=== PATIENT | male | born 1985 | race Caucasian/White ===

== ENCOUNTER → 2021-03-12 13:43 | Outpatient (CLI) | payer OTHER, SELFPAY | PROVIDERS: Visit Provider Nurse Practitioner | DX: U07.1 COVID-19 (principal) | CPT/HCPCS: C9803; U0003; U0005 ==

== ENCOUNTER 2023-02-08 08:00 | Emergency (ER) | payer BC, SELFPAY ==
[2023-02-08 08:37] VITALS: BP 119/68; PULSE 77; RESP 20; TEMP 36.9; O2SAT 97; BMI 25.0
--- NOTE | 2023-02-08 08:42 | HMH.EDGENADL ---
Discharge Plan Disposition Patient Disposition: Home, Self-Care Prescriptions Prescriptions: New bbiufhrkzdtyazl-louaadsir-ZA [Bromfed DM] 2-30-10 mg/5 mL syrup 5 ml PO Q6H PRN (Reason: cold symptoms) Qty: 118 0RF Referrals Follow up/Referrals: Provider,Referral, MD [Primary Care Provider] - See instructions Activity Restrictions/Add. Instructions Additional Instructions/Restrictions: At this time it was felt you are safe to be discharged home. If new or worsening symptoms please do not hesitate to return the emergency department. If symptoms persist please follow-up with your family doctor as you are able. Please take your medications as prescribed. Clinical Impressions Clinical Impression: Acute viral syndrome Discharge ED Provider: Diomedes Dong General Adult HPI General Chief complaint: Upper Respiratory Infection Stated complaint: congestion,headache,body aches Time Seen by Provider: 02/08/23 08:23 Mode of Arrival: Ambulatory Source of Information: Patient Limitations: No Limitations Description of Symptoms (Recalled from ER Triage Doc. by RN): pt to ed c/o body aches, intermittent cough and headache x1 week History of Present Illness HPI narrative: Patient is a 37-year-old male who presents emergency department for evaluation of upper respiratory symptoms patient has had an intermittent cough, body aches for the last week. Symptoms are improved with Tylenol and ibuprofen however resurge after. Patient has multiple sick contacts at home with similar symptoms. Adequate p.o. intake. No chest pain or shortness of breath currently. Patient feels as if he is getting better. No other acute complaints at this time. Related Data Previous Rx's Medication Instructions Recorded wzlvvloeeneropi-iwgciamiigmoewa-EZ 5 ml PO Q6H PRN cold symptoms #118 02/08/23 2 mg-30 mg-10 mg/5 mL oral syrup mL (Bromfed DM) Allergies Allergy/AdvReac Type Severity Reaction Status Date / Time No Known Allergies Allergy Verified 02/08/23 08:44 [facility] Disclaimer: The information contained in this section may have been updated after the patient was seen, as this information can be updated by other users. Social History Smoking Status: Never smoker alcohol intake: never current occupational status: other Travel in the last 8 weeks: None ROS Obtained: Yes Systems reviewed as appropriate & no additional complaints except as documented Physical Exam General General appearance: alert and in no apparent distress Head Head exam: atraumatic and normocephalic Eye Eye exam: Present PERRL and EOMI ENT ENT exam: Present normal oropharynx and mucous membranes moist Neck Neck exam: Present normal inspection Chest Chest inspection: Present normal inspection and symmetric chest wall rise Respiratory Respiratory exam: Present normal lung sounds bilaterally; Absent respiratory distress, wheezes or accessory muscle use Cardiovascular Cardiovascular exam: Present regular rate and normal rhythm Abdominal Exam Abdominal exam: Present soft; Absent tenderness Extremities Exam Extremities exam: Present normal inspection Neurological Exam Neurological exam: Present alert Psychiatric Psychiatric exam: Present normal affect Skin Skin exam: Present warm and dry Medical Decision Making Tan Inquiry Pt receiving controlled substance: No Vital Signs: 02/08/23 08:37 Temperature 98.4 F Temperature Source Oral Pulse Rate [Left Radial] 77 Respiratory Rate 20 Blood Pressure [Right Arm] 119/68 Blood Pressure Mean [Right Arm] 85 02 Sat by Pulse Oximetry 97 Oxygen Delivery Method Room Air Medical Decision Narrative: In summary patient 37-year-old male with past medical history described above who presents emergency department for evaluation of respiratory symptoms. Patient is hemodynamically stable nontoxic-appearing upon arrival, afebrile. Patient has no comorbidities and is clear to auscultation all
[2023-02-08 08:53] VITALS: BP 120/66; PULSE 79; RESP 20; TEMP 36.9; O2SAT 97
== END 2023-02-08 08:56 | disposition home or self-care (01) ==
LOC: UTC 08:07 → ER 08:12
PROVIDERS: Emergency Provider Emergency Medicine
DX: R51.9 Headache, unspecified (principal); R05.9 Cough, unspecified; B34.9 Viral infection, unspecified
CPT/HCPCS: 99283

== ENCOUNTER 2024-05-04 15:03 | Outpatient (CLI) | payer OTHER, BC, SELFPAY ==
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
== END 2024-05-04 23:59 | disposition home or self-care (01) ==
PROVIDERS: PCP Internal Medicine Adolescent Medicine; Visit Provider Internal Medicine Adolescent Medicine
DX: M54.2 Cervicalgia (principal); M54.6 Pain in thoracic spine
CPT/HCPCS: 72084